=== PATIENT | female | born 1985 | race Caucasian/White ===

== ENCOUNTER → 2020-04-05 | Outpatient (CLI) | payer BC ==
[~2020-04-05] MED LIST: COZAAR 50MG TAB50 MG PO; HEATHER0.35 MG PO; HYDROCHLOROTHIA25 MG PO; LOPRESSOR 50 MG50 MG GT; METFORMIN HCL500 M2 PO; METOPROLOL SUC100 MG PO; SPIRONOLACTONE100 MG PO
[2020-04-05 12:50] LABS: BUN/CREATININE RATIO 15 (0-10)
== END ==
LOC: CT 12:06
PROVIDERS: Physician Assistant
DX: Z13.1 Encounter for screening for diabetes mellitus (principal); I10 Essential (primary) hypertension; K57.30 Diverticulosis of large intestine without perforation or abscess without bleeding
CPT/HCPCS: 36415; 80053; Q9967

== ENCOUNTER → 2020-04-22 | Outpatient (CLI) | payer BC | LOC: KOH-I 10:00 | DX: R10.9 Unspecified abdominal pain (principal); K57.30 Diverticulosis of large intestine without perforation or abscess without bleeding | CPT/HCPCS: 74176 ==

== ENCOUNTER → 2020-05-13 | Outpatient (CLI) | payer BC | LOC: EXRD 14:09 | DX: R22.41 Localized swelling, mass and lump, right lower limb (principal) | CPT/HCPCS: 76881 ==

== ENCOUNTER → 2020-06-09 | Day surgery (SDC) | payer BC ==
[~2020-06-09] VITALS: Ht 172.7 cm; Wt 122.5 kg
== END | disposition home or self-care (01) ==
LOC: OR 07:33
PROVIDERS: Internal Medicine Gastroenterology
PROC: 0DBE8ZX Excision of Large Intestine, Via Natural or Artificial Opening Endoscopic, Diagnostic (ICD-10-PCS; 2020-06-09)
PROC: 0DBP8ZX Excision of Rectum, Via Natural or Artificial Opening Endoscopic, Diagnostic (ICD-10-PCS; 2020-06-09)
PROC: 0DBB8ZX Excision of Ileum, Via Natural or Artificial Opening Endoscopic, Diagnostic (ICD-10-PCS; 2020-06-09)
PROC: 0DBH8ZX Excision of Cecum, Via Natural or Artificial Opening Endoscopic, Diagnostic (ICD-10-PCS; principal; 2020-06-09 11:15)
DX: K57.30 Diverticulosis of large intestine without perforation or abscess without bleeding (principal); K64.1 Second degree hemorrhoids; E28.2 Polycystic ovarian syndrome; I10 Essential (primary) hypertension; E11.9 Type 2 diabetes mellitus without complications; E66.01 Morbid (severe) obesity due to excess calories; Z68.41 Body mass index [BMI] 40.0-44.9, adult; Z79.84 Long term (current) use of oral hypoglycemic drugs; Z79.899 Other long term (current) drug therapy
CPT/HCPCS: 82962; 84703; J2250; J2704; J3010; J7040

== ENCOUNTER 2021-03-27 10:31 | Emergency (ER) | payer BC ==
[2021-03-27] MEDS ORDERED: MEDROL DOSEPAK 24 MG PO (12:08)
[2021-03-27] MEDS ORDERED: ENDOCET 5-3251 EACH PO (12:08)
== END 2021-03-27 12:52 | disposition home or self-care (01) ==
LOC: ER1 10:31
DX: M54.16 Radiculopathy, lumbar region (principal); E11.9 Type 2 diabetes mellitus without complications; I10 Essential (primary) hypertension
CPT/HCPCS: 72100; 84703; 96372; 99283; J1100; J1885

== ENCOUNTER → 2021-11-27 | Outpatient (CLI) | payer BC ==
[~2021-11-27] MED LIST changes: +BUSPIRONE HCL10 MG PO; +ENDOCET 5-3251 EACH PO; +LOSARTAN POTAS100 MG PO; +MEDROL DOSEPAK 24 MG PO; +METFORMIN HCL750 MG PO; +OZEMPIC0.25 MG/0. SQ
[2021-11-27 09:34] LABS: HEMOGLOBIN 12.1 gm/dl (12.3-15.3); RED BLOOD COUNT 4.3 M/UL (4.00-5.10)
== END ==
LOC: OPSV2 08:00
PROVIDERS: Obstetrics & Gynecology
DX: Z01.812 Encounter for preprocedural laboratory examination (principal); N83.202 Unspecified ovarian cyst, left side
CPT/HCPCS: 36415; 80053; 81001; 85025

== ENCOUNTER → 2021-12-06 | Day surgery (SDC) | payer BC ==
[~2021-12-06] VITALS: Ht 172.7 cm; Wt 113.4 kg
[~2021-12-06] MED LIST changes: +HYDROCODONE-AC1 EACH PO; +IBUPROFEN600 MG PO
== END | disposition home or self-care (01) ==
LOC: OR 07:16
DX: N83.201 Unspecified ovarian cyst, right side (principal); K66.0 Peritoneal adhesions (postprocedural) (postinfection); I10 Essential (primary) hypertension; Z79.899 Other long term (current) drug therapy
CPT/HCPCS: 82962; 84703; C1769; J0690; J1100; J1170; J1885; J2001; J2250; J2370; J2405; J2704; J3010